=== PATIENT | female | born 1990 | race Caucasian/White ===

== ENCOUNTER 2025-06-22 07:52 | Outpatient (CLI) | payer OTHER ==
[2025-06-22 08:51] LABS: Hematocrit 37.9 % (34.9-44.5); Hemoglobin 12.7 g/dL (12.0-15.5); Mean Corpuscular Hemoglobin 31.8 pg (27.0-33.0); Mean Corpuscular Volume 94.8 fL (81.6-98.3); Platelet Count 261 10x3/uL (150-450); Red Blood Cell (RBC) Count 4.00 10x6/uL (3.90-5.03); White Blood Cell (WBC) Count 4.47 10x3/uL (3.5-10.5)
[2025-06-22 11:13] LABS: BHCG - Serum Negative (NEGATIVE); Pregs Control Background? CLEAR/WHITE (CLR/WHITE); Pregs Control Bar Appear? YES (CONTROL BAR)
== END 2025-06-22 07:53 | disposition home or self-care (01) ==
LOC: CSHLAB 07:52
PROVIDERS: ATTEND Obstetrics & Gynecology
DX: Z01.812 Encounter for preprocedural laboratory examination (principal); D27.1 Benign neoplasm of left ovary
CPT/HCPCS: 84703; 85027; 86850; 86900; 86901

== ENCOUNTER 2025-06-24 08:21 | Day surgery (SDC) | payer OTHER ==
[2025-06-22 08:15] VITALS: BMI 24.9
[2025-06-22 08:51] LABS: Hematocrit 37.9 % (34.9-44.5); Hemoglobin 12.7 g/dL (12.0-15.5); Mean Corpuscular Hemoglobin 31.8 pg (27.0-33.0); Mean Corpuscular Volume 94.8 fL (81.6-98.3); Platelet Count 261 10x3/uL (150-450); Red Blood Cell (RBC) Count 4.00 10x6/uL (3.90-5.03); White Blood Cell (WBC) Count 4.47 10x3/uL (3.5-10.5)
[2025-06-22 11:13] LABS: BHCG - Serum Negative (NEGATIVE); Pregs Control Background? CLEAR/WHITE (CLR/WHITE); Pregs Control Bar Appear? YES (CONTROL BAR)
[2025-06-24] MEDS ORDERED: Famotidine/PF 20 mg/2ml Vial ONE (08:45)
[2025-06-24] MEDS ORDERED: Rocuronium Bromide 10 MG/ML (10ML VIAL) ONE (09:09)
[2025-06-24] MEDS ORDERED: PROPOFOL 20 ML ONE (09:09)
[2025-06-24] MEDS ORDERED: Bupivacaine HCl 0.5%/Epinephrine 1:200,000/PF 30 ml Vial ONE (09:29)
[2025-06-24] MEDS ORDERED: CEFAZOLIN 2 GM VIAL ONE (09:53)
[2025-06-24] MEDS ORDERED: SUGAMMADEX SODIUM 200 MG/2 ML VIAL ONE (10:37)
[2025-06-24] MEDS ORDERED: Glycopyrrolate 0.2 MG/ML 5 ML SYRINGE ONE (10:50)
[2025-06-24] MEDS ORDERED: HYDROcodone/Acetaminophen 5/325 mg Tablet ONE (12:02)
== END 2025-06-24 12:50 | disposition home or self-care (01) ==
LOC: CSHSDC 08:21
PROVIDERS: ATTEND Obstetrics & Gynecology
PROC: 0UB14ZZ Excision of Left Ovary, Percutaneous Endoscopic Approach (ICD-10-PCS; principal; 2025-06-24)
DX: D27.1 Benign neoplasm of left ovary (principal); Z97.5 Presence of (intrauterine) contraceptive device; Z90.721 Acquired absence of ovaries, unilateral; Z91.041 Radiographic dye allergy status
CPT/HCPCS: 84703; 85027; 86850; 86900; 86901; 88304; J1100; J1308; J2250; J2704; J3010; S2900